=== PATIENT | female | born 1990 | race Caucasian/White ===

== ENCOUNTER 2017-02-17 23:54 | Observation (INO) | payer MEDICAID ==
[~2017-02-17] VITALS: Ht 165.1 cm; Wt 57.7 kg
[~2017-02-17 23:54] MED LIST: LISI-621 PO; NO ROUTINE MEDS; ONDA4TAB7 PO
[2017-02-18] VITALS (26 sets, daily range): BP systolic 102–140; BP diastolic 50–92; PULSE 71–110; RESP 12–27; TEMP 97.4–97.7; O2SAT 90–100; Ht 165.1 cm; Wt 57.7 kg
[2017-02-18] MEDS ORDERED: NORMAL SALINE 1,000 ML IV ONE
[2017-02-18] MEDS ORDERED: ONDANSETRON 4mg/2ml INJECTION IV ONE
--- NOTE | 2017-02-18 00:09 | ERPDOC ---
Departure Disposition Decision Date: Feb 18, 2017 Disposition Decision Time: 01:30 Disposition: 02 TO OBS [facility] [place] Impression Impression Impression: Primary Impression: Multiple drug overdose Encounter type: initial encounter Injury intent: accidental or unintentional Qualified Codes: T50.901A - Poisoning by unspecified drugs, medicaments and biological substances, accidental (unintentional), initial encounter Additional Impression: Alcohol intoxication Complication of substance-induced condition: with unspecified complication Qualified Codes: F10.129 - Alcohol abuse with intoxication, unspecified Severity: Severe Condition: Improved Seen By: Physician only Problems/Meds/Labs Reviewed?: Yes Medications reviewed and manag: Yes Follow up care ordered?: Yes Mental Status: Alert Critical Care Note Total Time (mins): 45 Critical Care Spent: [id number] care of pt, Reviewing test results, Discuss the case w/staff, Documenting the MR, Discussion w/ family/DPOA During this visit the pt was: At Risk of Deterioration HPI - General Medical General Chief Complaint: Substance Abuse Stated Complaint: UNRESPONSIVE Time Seen by Provider: 23:56 Source: EMS Exam Limitations: intoxication HPI - General Medical Initial Comments Patient had been drinking hard liquor all day with her "friends" and she became unresponsive tonight. Down the patient responsible and to deep painful stimuli, however this worsened over the course of their evaluation. Patient was given Narcan without improvement. Patient's name is unknown at this time but her "friends" think it is Sonja Jinjackinger Uncertain whether the patient has had any recreational drugs today, however minimal marijuana either in the raw form or paraphernalia for such were found at the home tonight. Occurred At: home Onset: Rapid Duration: 1-3 hrs Severity: severe Associated Symptoms: DENIES: chest pain, cough, diaphoresis, fever/chills, headaches, loss of appetite, malaise, nausea/vomiting, rash, seizure, shortness of breath, syncope, weakness Hx of Similar Symptoms: No Allergies: Coded Allergies: NKDA (Unverified Allergy, Unknown, 02/18/17) Past History Unable to Obtain PMH Due to: clinical condition, intoxication Review of Systems Unable to Obtain ROS Due to: clinical condition, intoxication Comments According to the friends patient had no concerns problems or issues throughout the day while they were drinking Constitutional Constitutional: DENIES: appetite decrease, appetite increase, chills, dizziness , fever, weakness ENMT Ears: DENIES: pain Hearing: DENIES: hearing loss, tinnitus Balance: DENIES: vertigo Mouth/Throat: DENIES: change in swallowing, change in voice, hoarsness, painful swallowing, sore throat Cardiovascular Cardiac: DENIES: chest pain, dyspnea on exertion Rhythm/Rate: DENIES: irregular beat, palpitations, tachycardia Vascular: DENIES: pedal edema Pulmonary Respiratory: DENIES: cough, dyspnea, pleuritic chest pain GI Upper Abdomen: DENIES: dysphagia, heartburn/indigestion, nausea, pain, vomiting Lower Abdomen: DENIES: blood in stool, constipation, diarrhea, pain General: DENIES: burning, dysuria, frequency, pain, urgency Musculoskeletal General: DENIES: cramps, joint pain, joint swelling, pain, weakness Integumentary Skin: DENIES: rash, sores Neurological General: DENIES: headache, numbness, tingling, vertigo, weakness Psychiatric Psychiatric: DENIES: anxiety, depression, nervousness Physical Exam General General Nourishment: well nourished, well developed, thin Distress Description Patient is completely unresponsive to physical and verbal stimuli General Body Habitus: disheveled Vitals and Pain Weight: Kilograms: Height (feet): Height (inches): Triage Pain Scale: Normal Exams: Head: Normocephalic w/o trauma Eyes: Pupils are PERRLA w/ EOMI (but sluggish), No scleral icterus, irritation , or foreign bodies noted ENMT: No facial trauma, nasal exudates, pharyngeal erythema, or exudates are noted Neck: Full range of motion, without adenopathy, JVD, bruits or thyromegaly Chest/Resp: Clear all shelby, with good airflow, and symmetry bilaterally CV: Regular rate and rhythm, without murmur or gallop, Pulses 2+ all extremities, capillary refill, <2 seconds all ext., no pedal edema noted Abdomen: Bowel sounds positive, soft, non-tender, non-distended, no hepatosplenomegaly, masses or bruits noted Lymphatic: No lymphadenopathy, or lymphedema noted Musculoskeletal: No tenderness, or deformity noted, good range of motion, all extremities Integumentary: No rashes, hives, or bruising noted, hair and nails, without abnormality Integumentary (brief) Integumentary Brief: FOUND: dry, pink, warm Neurologic (brief) Comments Patient is obtunded, appears to move all of her extremities during a retching episode, but otherwise has no voluntary movement. Withdraw to pain GCS is 3. Patient does appear to be maintaining her airway, and with deep physical stimulation is normal O2 saturation. When allowed to relax and patient becomes somnolent, O2 saturations dropped into the 80s. Neurologic GCS Adult : GCS Eye Opening: (1)None GCS Verbal: (1)None GCS Motor: (1)None Psychiatric (brief) Psychiatric Brief: NOT FOUND: alert, attentive, normal affect, oriented Progress Results/Orders Orders Procedure Category Date Status Time Iv Lock (Ed Only) EDM 02/17/17 Transmitted 23:57 Cbc W/Auto LAB 02/17/17 Complete Diff-Reflex Manual Cmp - Comprehensive LAB 02/17/17 Complete Metabolic Ethanol LAB 02/17/17 Complete Drug Screen LAB 02/17/17 Complete Urine-Test At [facility] 23:57 LAB 02/17/17 Complete Qualitative, Urine 23:57 Straight Cath EDM 02/17/17 Transmitted 23:57 Bladder Scanner (Ed) EDM 02/17/17 Transmitted 23:57 Ondansetron Inj PHA 02/18/17 Complete (Zofran) 00:00 Normal Saline (Normal PHA 02/18/17 Complete Saline Iv) 00:00 Diazepam (Valium) PHA 02/18/17 Complete 00:45 Ct Head W/O Contrast CT 02/18/17 Logged Lab Results Laboratory Tests Test 02/18/17 00:01 02/18/17 00:18 White Blood Count 11.4T/MM3 Red Blood Count 4.50M/MM3 Hemoglobin 14.6GM/DL Hematocrit 41.9% Mean Corpuscular Volume 93.1UM3 Mean Corpuscular Hemoglobin 32.4UUG Mean Corpuscular Hemoglobin Concent 34.8GM/DL RDW Standard Deviation 43.0FL Platelet Count 387T/MM3 Mean Platelet Volume 9.3UM3 Immature Granulocyte % (Auto) 0.1% Neutrophils (%) (Auto) 43.6% Lymphocytes (%) (Auto) 48.3% Monocytes (%) (Auto) 4.9% Eosinophils (%) (Auto) 1.8% Basophils (%) (Auto) 1.3% Absolute Immature Granulocyte (auto 0.01T/MM3 Absolute Neutrophils (auto) 5.0T/MM3 Absolute Lymphocytes (auto) 5.5T/MM3 Absolute Monocytes (auto) 0.6T/MM3 Absolute Eosinophils (auto) 0.2T/MM3 Absolute Basophils (auto) 0.2T/MM3 Turbidity < 20 Sodium Level 150MEQ/L Potassium Level 3.4MEQ/L Chloride Level 107MEQ/L Carbon Dioxide Level 25MEQ/L Anion Gap 18MEQ/L Blood Urea Nitrogen 8.0MG/DL Creatinine 0.7MG/DL Glomerular Filtration Rate Calc 103 BUN/Creatinine Ratio 11RATIO Glucose Level 123MG/DL Calculated Osmolality 287MOSM/KG Calcium Level 9.4MG/DL Total Bilirubin 0.60MG/DL Icterus Index < 2 Aspartate Amino Transf (AST/SGOT) 24U/L Alanine Aminotransferase (ALT/SGPT) 30U/L Alkaline Phosphatase 84U/L Total Protein 7.5G/DL Albumin 4.6G/DL Globulin 2.9G/DL Albumin/Globulin Ratio 1.6RATIO Chemistry Specimen Hemolysis < 15 Alcohol, Quantitative 240MG/DL Urine Test Negative Urine Opiates Screen NegativeNG/ML Urine Oxycodone Screen NegativeNG/ML Urine Methadone Screen NegativeNG/ML Urine Propoxyphene Screen NegativeNG/ML Urine Barbiturates Screen NegativeNG/ML Urine Tricyclic Antidepressants NegativeNG/ML Urine Phencyclidine Screen NegativeNG/ML Urine Amphetamines Screen PositiveNG/ML Urine Methamphetamines Screen NegativeNG/ML Urine Benzodiazepines Screen NegativeNG/ML Urine Cocaine Screen NegativeNG/ML Urine Cannabinoids Screen PositiveNG/ML Urine Drug Screen Confirmation Sent out Urine Drug Screen Information Pending Medications Current ED Medications Ondansetron HCl 4 mg 4 mg O ONCE IV Last administered on 02/18/17t 00:06; Start 02/18/17 at 00:00; Stop 02/18/17 at 00:01; Status DC Sodium Chloride (Normal Saline IV) 1,000 ml @ 0 mls/hr Q0M ONCE IV ; Start 10/25 at 00:00; Stop 02/18/17 at 00:01; Status DC Diazepam (Valium) 10 mg O ONCE IV ; Start 02/18/17 at 00:45; Stop 02/18/17 at 00:50; Status DC Progress Progress Patient is hypoxemic when somnolent, but on 2 L nasal cannula she oxygenates well without difficulty. EtOH - 240 elevated UDS - positive amphetamines, positive marijuana CT head - normal CBC - normal CMP - normal Preg - negative On first attempted CT scan, patient began thrashing wildly on the bed, and. Be having a seizure. She was brought back to the emergency department where she is tactile, eyes rolled up into the right, and had persistent asthmatic movements of all of her limbs and thrashing of her head and neck. Patient was given 10 mg of Valium IV to stop seizures, as well as for preparation for possible RSI. After Valium, patient calm down significantly, O2 saturations actually improved , patient seemed much more stable. Patient continues to maintain her oxygen saturation and airway without difficulty at this time. Discussed with Dr. Lepe - admit observation to ICU for multiple drug overdose with alcohol intoxication LANG KING MD Feb 18, 2017 00:09
--- NOTE | 2017-02-18 00:15 | NUR ---
CATH STRAIGHT CATH COMPLETED AT THIS TIME, PT HAS NO RESPONSE.
--- NOTE | 2017-02-18 00:24 | NUR ---
IMAGING PT LEAVES VIA CART WITH IMAGING STAFF AT THIS TIME ACCOMPANIED BY RN AND REMAINS ON PORTABLE MONITOR FOR TRANSPORT.
[2017-02-18 00:25] LABS: BASOPHILS # (AUTO) 0.2 T/MM3 (0-0.2); BASOPHILS % (AUTO) 1.3 % (0-2); EOSINOPHILS # (AUTO) 0.2 T/MM3 (0-0.5); EOSINOPHILS % (AUTO) 1.8 % (0-4); HCT - HEMATOCRIT 41.9 % (36-46); HGB - HEMOGLOBIN 14.6 GM/DL (12-16); IMMATURE GRANULOCYTE # (AUTO) 0.01 T/MM3 (0.00-0.03); IMMATURE GRANULOCYTE % (AUTO) 0.1 % (0.0-0.5); LYMPHOCYTES # (AUTO) 5.5 T/MM3 (1-4.8); LYMPHOCYTES % (AUTO) 48.3 % (23-45); MEAN CORPUSCULAR HGB 32.4 UUG (26-34); MEAN CORPUSCULAR HGB CONC(MCHC 34.8 GM/DL (31-37); MEAN CORPUSCULAR VOLUME 93.1 UM3 (80-100); MEAN PLATELET VOLUME 9.3 UM3 (9.4-12.4); MONOCYTES # (AUTO) 0.6 T/MM3 (0-0.8); MONOCYTES % (AUTO) 4.9 % (0-9.0); NEUTROPHILS % (AUTO) 43.6 % (33-66); WBC - WHITE BLOOD COUNT 11.4 T/MM3 (4.5-11.0)
[2017-02-18 00:32] LABS: ALBUMIN 4.6 G/DL (3.5-5.0); ALBUMIN/GLOBULIN RATIO 1.6 RATIO (1.1-2.2); ALKALINE PHOSPHATASE 84 U/L (38-126); ALT (SGPT) 30 U/L (9-52); ANION GAP 18 MEQ/L (5-15); AST (SGOT) 24 U/L (14-36); BUN/CREATININE RATIO 11 RATIO (6-26); CALCIUM 9.4 MG/DL (8.4-10.2); CHLORIDE 107 MEQ/L (98-107); CO2 - CARBON DIOXIDE 25 MEQ/L (22-30); CREATININE 0.7 MG/DL (0.7-1.2); ETHANOL 240 MG/DL (<10); GLOMERULAR FILTRATION RATE 103; GLUCOSE 123 MG/DL (65-110); POTASSIUM 3.4 MEQ/L (3.6-5); SODIUM 150 MEQ/L (134-144); TOTAL PROTEIN 7.5 G/DL (6.3-8.2)
--- NOTE | 2017-02-18 00:33 | NUR ---
STATUS PT IS UNABLE TO LIE STILL ON CT TABLE, IS PLACED ON SIDE BECAUSE SHE APPEARS TO BE "DRY HEAVING". PT REMAINS UNRESPONSIVE, DOES NOT VOMIT. PT CONTINUES TO THRASH AROUND ON CT TABLE AND IS NOT ABLE TO HOLD HER HEAD IN CORRECT POSITION. PT HAS WHAT APPEARS TO BE SEIZURE LIKE ACITIVITY. PROVIDER IS CONTACTED AND CT IS PUT ON HOLD AT THIS TIME. PT WILL BE TRANSPORTED BACK TO ER.
--- NOTE | 2017-02-18 00:36 | NUR ---
IV DC AT SOME POINT DURING PT'S TRASHING AROUND AND TRANSPORT, PT'S IVL IS DC'D.
--- NOTE | 2017-02-18 00:40 | NUR ---
RETURN PT RETURNS TO ER, PROVIDER IS PRESENT, APPEARS TO BE IN A POST ICTAL STATE. DUE TO PROBLEMS MAINTAINING HER AIRWAY, RT IS CONTACTED FOR POSSIBLE INTUBATION.
[2017-02-18 00:44] LABS: AMPHETAMINE SCREEN,URINE POSITIVE; BARBITURATE SCREEN,URINE NEGATIVE; BENZODIAZEPINES SCREEN,URINE NEGATIVE; CANNABINOID SCREEN,URINE POSITIVE; COCAINE SCREEN,URINE NEGATIVE; METHADONE SCREEN, URINE NEGATIVE; METHAMPHETAMINE SCREEN, URINE NEGATIVE; OPIATE SCREEN,URINE NEGATIVE; PHENCYCLIDINE SCREEN,URINE NEGATIVE; TRICYCLIC ANTIDEPRESSANT,URINE NEGATIVE
--- NOTE | 2017-02-18 00:45 | NUR ---
IV & MED 18 GA IVL STARTED IN PT R AC ON 1ST ATTEMPT. PT IS GIVEN 10MG VALIUM IV.
--- NOTE | 2017-02-18 00:50 | NUR ---
CT PT LEAVES VIA CART ACCOMPANIED BY RN REMAINING ON PORTABLE MONITOR AT THIS TIME.
--- NOTE | 2017-02-18 01:00 | NUR ---
RETURN PT RETURNS TO ROOM. PT IS SLEEPING AND REMAINS STILL, NO LONGER THRASHING AROUND.
[2017-02-18] MEDS ORDERED: NO CURRENT HOME MEDS (01:25)
[2017-02-18] MEDS ORDERED: LISINOPRIL (01:35)
--- NOTE | 2017-02-18 01:40 | NUR ---
REPORT GIVEN TO CHIP WHITNEY AT THIS TIME.
--- NOTE | 2017-02-18 02:10 | NUR ---
ADMIT ADMIT TO CCU 2 PER CART FROM ED. PT UNRESPONSIVE TO PAINFUL STIMULI. PUPILS REACTIVE. RESP REGULAR AND SOMEWHAT SHALLOW. FAMILY HERE. 02 2L/NC.
--- NOTE | 2017-02-18 02:10 | NUR ---
TRANSPORT PT IS TRANSPORTED VIA CART ON PORTABLE MONITOR TO CCU BED 2 AT THIS TIME.
[2017-02-18] MEDS ORDERED: NORMAL SALINE 1,000 ML IV SCH (02:13)
[2017-02-18] MEDS ORDERED: LORAZEPAM 2 MG/ML INJECTION IV PRN (02:15)
--- NOTE | 2017-02-18 03:08 | HPPDOC ---
VERONICA CONNELLY MD 02/18/17 0239: HPI - Adult Date DATE: 02/18/17 TIME: 02:35 General Chief Complaint: overdose History of Present Illness 26 yo F presented to the ED today after becoming unresponsive while drinking with friends. Patient was initally responsive, but then became less so during their evaluation. Patient was given narcan in the ED with no improvement in her symptoms. UDS was positive for amphetamines and THC. CT head was negative in the ED. She had witnessed seizure activity in the ED that resolved with 10mg IV valium. Patient is not responsive at this time, but pupils are JAME and she has a corneal reflex. HX is taken from nursing staff and ED doctor. Past Medical History Past Medical History THS use Ampheatamine usage Current Medications Home Meds Active Scripts Thiamine (Thiamine HCl) 100 Mg Tablet, 100 MG PO DAILY, #30 TAB Prov:TENA HERNDON MD 02/18/17 Reported Medications [Lisinopril] No Conflict Check 02/18/17 Allergies: Coded Allergies: NKDA (Unverified Allergy, Unknown, 02/18/17) Family History Family History: unable to obtain Review of Systems Unable to Obtain ROS Due to: clinical condition, intoxication Physical Exam General General Nourishment: well developed, other Vital Signs Vital Signs Date Time Temp Pulse Resp B/P Pulse Ox O2 Delivery O2 Flow Rate FiO2 02/18/17 02:00 93 18 116/55 98 Nasal Cannula 2.00 02/18/17 00:00 96.9 Height (Feet): 5 Height (Inches): 5.00 Eyes Brief: FOUND: PERRL Comments corneal reflex intact. Respiratory Brief: FOUND: clear all shelby, equal bilaterally Cardiovascular (brief) Cardiac Brief: FOUND: regular rate, regular rhythm Abdomen (brief) Abdominal Brief: FOUND: BS normo active x4, soft Neurologic RN Documented GCS Eye Opening: (1)None Verbal: (1)None Motor: (1)None Total: Psychiatric (brief) FOUND: other (obtunded) Laboratory Laboratory Tests Test 02/18/17 00:01 02/18/17 00:18 White Blood Count 11.4T/MM3 Red Blood Count 4.50M/MM3 Hemoglobin 14.6GM/DL Hematocrit 41.9% Mean Corpuscular Volume 93.1UM3 Mean Corpuscular Hemoglobin 32.4UUG Mean Corpuscular Hemoglobin Concent 34.8GM/DL RDW Standard Deviation 43.0FL Platelet Count 387T/MM3 Mean Platelet Volume 9.3UM3 Immature Granulocyte % (Auto) 0.1% Neutrophils (%) (Auto) 43.6% Lymphocytes (%) (Auto) 48.3% Monocytes (%) (Auto) 4.9% Eosinophils (%) (Auto) 1.8% Basophils (%) (Auto) 1.3% Absolute Immature Granulocyte (auto 0.01T/MM3 Absolute Neutrophils (auto) 5.0T/MM3 Absolute Lymphocytes (auto) 5.5T/MM3 Absolute Monocytes (auto) 0.6T/MM3 Absolute Eosinophils (auto) 0.2T/MM3 Absolute Basophils (auto) 0.2T/MM3 Turbidity < 20 Sodium Level 150MEQ/L Potassium Level 3.4MEQ/L Chloride Level 107MEQ/L Carbon Dioxide Level 25MEQ/L Anion Gap 18MEQ/L Blood Urea Nitrogen 8.0MG/DL Creatinine 0.7MG/DL Glomerular Filtration Rate Calc 103 BUN/Creatinine Ratio 11RATIO Glucose Level 123MG/DL Calculated Osmolality 287MOSM/KG Calcium Level 9.4MG/DL Total Bilirubin 0.60MG/DL Icterus Index < 2 Aspartate Amino Transf (AST/SGOT) 24U/L Alanine Aminotransferase (ALT/SGPT) 30U/L Alkaline Phosphatase 84U/L Total Protein 7.5G/DL Albumin 4.6G/DL Globulin 2.9G/DL Albumin/Globulin Ratio 1.6RATIO Chemistry Specimen Hemolysis < 15 Alcohol, Quantitative 240MG/DL Urine Test Negative Urine Opiates Screen NegativeNG/ML Urine Oxycodone Screen NegativeNG/ML Urine Methadone Screen NegativeNG/ML Urine Propoxyphene Screen NegativeNG/ML Urine Barbiturates Screen NegativeNG/ML Urine Tricyclic Antidepressants NegativeNG/ML Urine Phencyclidine Screen NegativeNG/ML Urine Amphetamines Screen PositiveNG/ML Urine Methamphetamines Screen NegativeNG/ML Urine Benzodiazepines Screen NegativeNG/ML Urine Cocaine Screen NegativeNG/ML Urine Cannabinoids Screen PositiveNG/ML Urine Drug Screen Confirmation Sent out Assessment & Plan Problems: (1) Acute metabolic encephalopathy Assessment & Plan: secondary to EtOH and drug USE. ?seizure activity in ED and given 10mg Valium IV. This could be causing part of patients continued unresponsiveness. Continue to monitor. (2) Alcohol intoxication Status: Acute Qualifiers: Complication of substance-induced condition: with unspecified complication Qualified Codes: F10.129 - Alcohol abuse with intoxication, unspecified Assessment & Plan: EtOH level 240. Unresponsive to painful stimuli, but her pupils are JAME and she ahs intact corneal reflex. Will give IVF NS at 150cc/ hr overnight and supportive care. If O2 level drops will intubate patient for airway protection. Continue to monitor in the ICU overnight. (3) Multiple drug overdose Status: Acute Qualifiers: Encounter type: initial encounter Injury intent: accidental or unintentional Qualified Codes: T50.901A - Poisoning by unspecified drugs, medicaments and biological substances, accidental (unintentional), initial encounter Assessment & Plan: UDS postive for amphetamines and THC. Continue IVF and supportive care. DVT Prophylaxis: SCD'S Code Status Full Code Hospital Course Summary Disclaimer The hospital course summary below is not to be considered part of the above Progress Note. TENA HERNDON MD 02/18/17 1003: Past Medical History Current Medications Home Meds Active Scripts Thiamine (Thiamine HCl) 100 Mg Tablet, 100 MG PO DAILY, #30 TAB Prov:TENA HERNDON MD 02/18/17 Reported Medications [Lisinopril] No Conflict Check 02/18/17 Allergies: Coded Allergies: NKDA (Unverified Allergy, Unknown, 02/18/17) Assessment & Plan Assessment 02/18/2017-Dr. Herndon I have reviewed the H&P dictated above by Dr. Connelly. I have seen and examined the patient independently. Please see my additions below. Chief complaint is altered mental status History of present illness: Patient is seen in CCU accompanied by her mother, aunt, and other female relatives. The patient is very somnolent but arousable. History is very difficult to obtain from this patient secondary to somnolence. She complains of a headache and back pain. She apparently had been taking alcohol all day yesterday while she was fishing with friends. She came into the ER for altered mental status. While in the ER she apparently had a seizure and was given 10 mg of Valium IV. She was very somnolent secondary to both alcohol intoxication with an alcohol level of 240 and secondary to Valium. She is being monitored in CCU closely. Her mother states that she had absence seizures as a child but no history of grand mal seizures. Her mother states that she has history of hypertension. She told her family that when she had her last baby here a year ago she was told she had leukemia. She said she was seeing or supposed to see an oncologist. I called both oncology clinics here in [place] and neither have a record of her at their offices. [facility] The patient denies overdosing on any medications or trying to harm herself. Past medical history obtained from old records Hypertension Leukocytosis MRSA Cellulitis of the leg Constipation The patient told family she had leukemia Medications: Possibly lisinopril Social history: Family does not think she drinks regularly and know of no history of drug use. They state she is undergoing a divorce and has been somewhat distant for a few months. Family history of alcoholism Review of systems: Unable to obtain secondary to altered level of consciousness Physical exam Blood pressure is 138/81, pulse 82, O2 sat 92% on room air, respiratory rate 15 GEN-extremely drowsy but arousable. Breathing comfortably. Follows commands weakly. HEENT-sclera anicteric, pupils are equal round and reactive, oropharynx is moist NECK-supple Cardiovascular-borderline tachycardic rate with irregular rhythm, no murmurs CHEST-clear to auscultation bilaterally ABD-soft, nontender, nondistended with hypoactive bowel sounds -Mayers in place with normal colored urine EXT-no edema NEURO-patient is very somnolent. No facial asymmetry. Moves arms and legs weakly and equally on command SKIN-warm and dry, skin is flushed on her face, upper chest, arms and legs. Abdomen is not flushed. She likely has a sunburn. No fever. Laboratory from last night shows a CBC with white count of 11.4, hemoglobin 14.6 , platelets 387. Neutrophils 43. Lymphocytes elevated at 48. Sodium is 150, potassium 3.4, urine test negative, serum alcohol level CCXL Impression Severe alcohol intoxication Seizure Polysubstance abuse with urine drug screen positive for THC and amphetamine Hypernatremia Hypokalemia History of MRSA History of cellulitis of the leg Probable sunburn Mild leukocytosis with increased lymphocyte percent Questionable history of leukemia per family Plan Continue to watch closely in CCU. Repeat renal panel and CBC. Check aspirin and salicylate level. Get further history when patient is more somnolent. Case management consult regarding substance abuse. 02/18/2017-10:15 AM We'll also give a banana bag this morning. And start folate and thiamine IV daily starting tomorrow. 02/18/2017-3:35 PM The patient has been much more alert this afternoon. She is eating well. Mayers catheter was removed. She did see the social organization professor and the patient does not want any treatment for chemical dependency at this time. When I talked to the patient this afternoon she was alert and oriented 3. She denied using methamphetamine but admitted to marijuana use and alcohol use. She denied drinking alcohol on a daily basis. She did not want treatment for chemical dependency. She did admit to feeling depressed related to her recent divorce. She denies any thoughts of harming herself. She denies taking any intentional overdose yesterday. She denies thoughts of thinking people would be better off without her. She is willing to follow-up with Dr. Milvia Gallardo at [facility] regarding hospital follow-up and possible depression as well as her hypertension. The patient had concerns that she might have leukemia, but on CBC today white count was normal with an essentially normal differential. She can have a follow-up CBC with Dr. Gallardo if needed and referral to oncology if needed. The patient did have a witnessed seizure in the emergency room last night. I have told her she cannot drive until she is seizure free for 6 months. She stated that she wanted to follow-up with the neurologist that she saw as a child but does not remember his name. She thinks her father would have that paperwork. I told her that if she could not get in to her previous neurologist that she could follow-up with Dr. Hernandez here. She is being discharged to home today with family. She should follow-up in one week with Dr. Gallardo. She should follow-up with a neurologist. She is strongly wanting to be discharged to home. Her mother was present during this conversation. The patient may be discharged to home after she is able to urinate. I did recommend no alcohol, no marijuana use, no methamphetamine or other illicit drug use. VERONICA CONNELLY MD Feb 18, 2017 02:39 TENA HERNDON MD Feb 18, 2017 10:03
--- NOTE | 2017-02-18 04:30 | NUR ---
NEURO STATUS OPENS SLIGHTLY AND SAYS FEW WORDS. STILL VERY SLEEPY. SQUEEZES HANDS SLIGHTLY ON REQUEST. MOTHER HERE. DENIES NEED TO VOID.
--- NOTE | 2017-02-18 04:45 | NUR ---
LOPEZ BLADDER SCANNED. 850 CC URINE. #16 LOPEZ CATH INSERTED AND CONNECTED TO DD. 750CC RETURNED.
--- NOTE | 2017-02-18 08:27 | DI ---
Indication: ITS.REASON: unresponsiveness of unknown cause Procedure: CT HEAD W/O CONTRAST: Encounter: Initial Comparison: None Technique: Axial CT images through the head were performed without contrast. Iterative Reconstruction dose reducing technique was utilized. FINDINGS: The normal schmitt-white matter differentiation is maintained. No intra-axial or extra-axial mass or hemorrhage seen. No mass effect or midline shift. The ventricles and cerebral sulci are normal in size, shape, and configuration without evidence of hydrocephalus. The basilar cisterns are patent. No extracalvarial scalp swelling. No acute calvarial fracture. Partially visualized right maxillary sinus disease. The remaining visualized paranasal sinuses and mastoid air cells are well-aerated. The visualized orbits and globes appear normal. IMPRESSION: No acute intracranial process by noncontrast head CT. The above report concurs with the preliminary report provided by [facility] at 1:21 AM. .
--- NOTE | 2017-02-18 09:00 | NUR ---
STATUS Patient has been sleeping soundly. Family at bedside. Patient does respond to verbal stimuli and knows she is in the hospital. Falls back asleep.
[2017-02-18 09:56] LABS: HCT - HEMATOCRIT 42.7 % (36-46); HGB - HEMOGLOBIN 14.3 GM/DL (12-16); MEAN CORPUSCULAR HGB 31.7 UUG (26-34); MEAN CORPUSCULAR HGB CONC(MCHC 33.5 GM/DL (31-37); MEAN CORPUSCULAR VOLUME 94.7 UM3 (80-100); MEAN PLATELET VOLUME 9.2 UM3 (9.4-12.4); RED BLOOD COUNT 4.51 M/MM3 (4.00-5.20); WBC - WHITE BLOOD COUNT 7.8 T/MM3 (4.5-11.0)
[2017-02-18 10:07] LABS: ACETAMINOPHEN < 10 UG/ML (10-30); ALBUMIN 4.1 G/DL (3.5-5.0); ANION GAP 15 MEQ/L (5-15); BUN/CREATININE RATIO 10 RATIO (6-26); CALCIUM 8.6 MG/DL (8.4-10.2); CHLORIDE 109 MEQ/L (98-107); CO2 - CARBON DIOXIDE 24 MEQ/L (22-30); CREATININE 0.6 MG/DL (0.7-1.2); GLOMERULAR FILTRATION RATE 123; GLUCOSE 85 MG/DL (65-110); PHOSPHORUS 3.5 MG/DL (2.5-4.5); SALICYLATE < 1.0 MG/DL (2-20); SODIUM 148 MEQ/L (134-144)
[2017-02-18 10:16] LABS: BAND NEUTROPHILS # 0.2 T/MM3; EOSINOPHILS # (MANUAL) 0.2 T/MM3 (0-0.5); LYMPHOCYTES # (MANUAL) 3.3 T/MM3 (1-4.8); MONOCYTES # (MANUAL) 0.2 T/MM3 (0-0.8); TOTAL CELLS COUNTED 100 %
[2017-02-18] MEDS ORDERED: MULTI-VIT INF, ADULT 10 ML, THIAMINE 100 MG, FOLIC ACID 1 MG in NORMAL SALINE 1,000 ML IV ONE ×4 (10:30)
--- NOTE | 2017-02-18 12:00 | NUR ---
NUTRITION Patient tells family she is hungry. Order received for diet.
[2017-02-18] MEDS ORDERED: METOCLOPRAMIDE 10mg/2ml INJECTION IV PRN (12:30)
[2017-02-18] MEDS ORDERED: ONDANSETRON 4mg/2ml INJECTION IV PRN (12:30)
--- NOTE | 2017-02-18 12:30 | NUR ---
GI Patient ate regular food for lunch. Now c/o being nauseated. Zofran given per orders.
--- NOTE | 2017-02-18 15:09 | NUR ---
CM THIS WORKER MET WITH PT AT THIS TIME. ALSO PRESENT WAS MOTHER AND SISTER, MALIHA. THIS WORKER INTRODUCED SELF AND ROLE OF CASE MANAGEMENT. THIS WORKER REVIEWED OPTIONS FOR DRUG AND ALCOHOL THERAPY. PT DENIED NEED FOR TREATMENT SHE ONLY DRINKS ALCOHOL ON OCCASION AND MARIJUANA "FROM TIME TO TIME." PT REPORTED THAT SHE DID NOT USE METH INTENTIONALLY AND THAT SHE HAD ASKED FOR ASPIRIN AND A "FAMILY MEMBER" GAVE HER A PILL THAT MUST HAVE BEEN METH. THIS WORKER AGAIN REVIEWED TREATMENT OPTIONS AND THAT THIS WORKER WOULD ASSIST. PT DECLINED AT THIS TIME. PT REPORTED THAT SHE HAS MULTIPLE FAMILY MEMBERS FOR SUPPORT AND THAT SHE WOULD BE FINE. THIS WORKER REVIEWED ANY NEEDS TO ADDRESS DEPRESSION. PT ALSO DECLINED ANY ASSISTANCE FOR SUPPORT FOR THIS. THIS WORKER PROVIDED CONTACT INFORMATION FOR THIS WORKER AND ENCOURAGE PT TO CONTAC THIS WORKER FOR ADDITIONAL HELP IN THE FUTURE.
[2017-02-18] MEDS ORDERED: THIA100T13 PO (15:36)
--- NOTE | 2017-02-18 15:41 | NUR ---
[facility] REPORT REPORT MADE ONLINE DUE TO CONCERN FOR DRUG USAGE AT THE HOME WITH CHILDREN PRESENT. Addendum: 02/18/17 at 1542 by VAMSI VAZQUEZ Amended: Links added.
--- NOTE | 2017-02-18 16:15 | NUR ---
DISCHARGE Patient dismissed to home per orders. DC instructions given per orders.
[2017-02-19] MEDS ORDERED: FOLIC ACID 5 MG/ML INJECTION IV SCH (09:00)
[2017-02-19] MEDS ORDERED: THIAMINE 200mg/2ml INJECTION IV SCH (09:00)
--- NOTE | 2017-02-19 12:23 | NUR ---
DCF CONTACT RECEIVED A CALL FROM DCF WORKER ZACK PUENTES, EXT [phone]. REQUESTING ADDITIONAL INFORMATION REGARDING DCF REPORT MADE BY THIS WORKER. UPDATE GIVEN.
--- NOTE | 2017-02-24 14:42 | NUR ---
CM CALL ATTEMPTED #1, LVM.
== END 2017-02-18 16:15 | disposition home or self-care (01) ==
LOC: ED 23:54 → EDBD 23:54 → EDHOLD 02-18 01:27 → MERGE 02-18 01:27 → CCU 02-18 02:10
PROVIDERS: ADMIT Internal Medicine; ATTEND Family Medicine
DX: T50.901A Poisoning by unspecified drugs, medicaments and biological substances, accidental (unintentional), initial encounter (principal); T51.0X1A Toxic effect of ethanol, accidental (unintentional), initial encounter; G92 Toxic encephalopathy; R56.9 Unspecified convulsions; E87.0 Hyperosmolality and hypernatremia; E87.6 Hypokalemia; F10.129 Alcohol abuse with intoxication, unspecified; Y90.8 Blood alcohol level of 240 mg/100 ml or more; F17.210 Nicotine dependence, cigarettes, uncomplicated; Y92.018 Other place in single-family (private) house as the place of occurrence of the external cause; F15.90 Other stimulant use, unspecified, uncomplicated; F12.90 Cannabis use, unspecified, uncomplicated; K59.00 Constipation, unspecified; R03.0 Elevated blood-pressure reading, without diagnosis of hypertension; F32.9 Major depressive disorder, single episode, unspecified; Z86.14 Personal history of Methicillin resistant Staphylococcus aureus infection; Z81.1 Family history of alcohol abuse and dependence; D72.829 Elevated white blood cell count, unspecified; R23.2 Flushing; Z79.899 Other long term (current) drug therapy
CPT/HCPCS: 36415; 51701; 70450; 80053; 80307; 81025; 83735; 85025; 85027; 96361; 96365; 96366; 96375; 99291; 99406; G0378; J2405; J3360; J3411; J7030; 80069; 80306; 85007; 99218